=== PATIENT | female | born 1945 | race Caucasian/White ===

== ENCOUNTER → 2023-12-18 | Day surgery (SDC) | payer MEDICARE ==
[2023-12-11 13:26] LABS: BASOPHILS # (AUTO) 0.1 X10'3 (0-0.2); BASOPHILS % (AUTO) 0.5 % (0-1); EOSINOPHILS # (AUTO) 0.1 X10'3 (0-0.9); EOSINOPHILS % (AUTO) 0.6 % (0-6); LYMPHOCYTES # (AUTO) 2.4 X10'3 (1.1-4.8); LYMPHOCYTES % (AUTO) 19.6 % (21-51); MEAN CORPUSCULAR HEMOGLOBIN 30.3 PG (27.0-31.0); MEAN CORPUSCULAR HGB CONC 32.2 g/dL (33.0-36.5); MEAN CORPUSCULAR VOLUME 94.2 FL (78-98); MEAN PLATELET VOLUME 9.1 FL (7.4-10.4); MONOCYTES # (AUTO) 0.7 X10'3 (0-0.9); NEUTROPHILS # (AUTO) 9.1 X10'3 (1.8-7.7); NEUTROPHILS % (AUTO) 73.3 % (42-75); PRE OP HEMOGLOBIN 12.2 g/dL (12.0-16.0); PRE OP PLATELET COUNT 260 X10'3 (140-440); PRE OP WHITE BLOOD COUNT 12.5 10'3 (4.8-10.8); RED BLOOD COUNT 4.04 X10'6 (4.20-5.60); RED CELL DISTRIBUTION WIDTH 12.7 % (11.5-14.5)
[2023-12-11 13:42] LABS: ALBUMIN 3.5 G/DL (3.4-5.0); ALKALINE PHOSPHATASE 43 IU/L (46-116); BLOOD UREA NITROGEN 35 MG/DL (7-18); BUN/CREATININE RATIO 43.8 (10.0-20.0); CALCIUM 9.4 MG/DL (8.5-10.1); CHLORIDE 102 MMOL/L (99-107); PRE OP ALT 18 U/L (30-65); PRE OP ANION GAP 5 (8-16); PRE OP AST 12 U/L (10-37); PRE OP BILIRUB, TOTAL 0.3 MG/DL (0.0-1.0); PRE OP GLUCOSE 89 MG/DL (70-104); PRE OP POTASSIUM 4.1 MMOL/L (3.4-5.1); PRE OP SODIUM 139 MMOL/L (135-145); TOTAL CARBON DIOXIDE 32.3 MMOL/L (24-32); TOTAL PROTEIN 6.9 G/DL (6.4-8.2); eGFR 69 ML/MIN
[~2023-12-18] VITALS: Ht 154.9 cm; Wt 53.0 kg
[~2023-12-18] MED LIST: ACET650T48 PO; AMLO-708 PO; BENA40TA90 PO; CALC250T2 PO; DIPH25CA83 PO; DIVA-74 PO; ESCI20TA39 PO; ESTR1TAB28 PO; FOLI0.8C PO; LIDOcaine 2% (20mg/ml) 5ml vial ONE; OXYC1TAB17 PO; QUET100T34 PO; [UNRECOGNIZED DRUG - CODE] PO; fentaNYL/PF 50MCG/1 ML 2ML syringe ONE; midazolam 1 mg/ML 2ml injection ONE; ringers solution, lacted 1,000 ML IV SCH
[2023-12-18] MEDS: clindamycin 600mg/D5W 50ml 50 ML IV ONE (05:30)
[2023-12-18] MEDS: famotidine 20mg tablet PO ONE (05:30)
[2023-12-18 06:48] VITALS: RESP 15; O2SAT 96
[2023-12-18 07:16] VITALS: BP 142/67; PULSE 52; RESP 16; TEMP 97.5; O2SAT 97
[2023-12-18] MEDS: BUPIVAcaine/PF 2.5mg/ml (0.25%) 10ml vial ONE (09:16)
[2023-12-18] MEDS: LIDOcaine 2% (20mg/ml) 5ml vial ONE (09:16)
[2023-12-18 09:30] VITALS: BP 128/88; PULSE 51; RESP 16; O2SAT 99
[2023-12-18 09:40] VITALS: BP 129/54; PULSE 51; RESP 12; O2SAT 100
[2023-12-18 09:50] VITALS: BP 145/67; PULSE 52; RESP 13; O2SAT 98
[2023-12-18 10:10] VITALS: BP 135/69; PULSE 52; RESP 16; O2SAT 95
== END | disposition home or self-care (01) ==
LOC: PAS 06:12
PROVIDERS: ATTEND Orthopaedic Surgery Hand Surgery
DX: G56.02 Carpal tunnel syndrome, left upper limb (principal); I10 Essential (primary) hypertension; E78.00 Pure hypercholesterolemia, unspecified; I20.9 Angina pectoris, unspecified; F32.A Depression, unspecified; Z86.718 Personal history of other venous thrombosis and embolism; Z79.899 Other long term (current) drug therapy; Z96.651 Presence of right artificial knee joint; Z90.710 Acquired absence of both cervix and uterus; Z88.1 Allergy status to other antibiotic agents; Z88.2 Allergy status to sulfonamides; Z88.8 Allergy status to other drugs, medicaments and biological substances; Z82.49 Family history of ischemic heart disease and other diseases of the circulatory system; Z83.3 Family history of diabetes mellitus
CPT/HCPCS: 36415; 64721; 80053; 82948; 85025; A4215; A6449; J2001; J2250; J3010; J3490; J7030; J7120; Z7506

== ENCOUNTER 2024-08-14 05:58 | Outpatient (CLI) | payer MEDICARE ==
[~2024-08-14 05:58] MED LIST changes: -LIDOcaine 2% (20mg/ml) 5ml vial ONE; -fentaNYL/PF 50MCG/1 ML 2ML syringe ONE; -midazolam 1 mg/ML 2ml injection ONE; -ringers solution, lacted 1,000 ML IV SCH
== END 2024-08-14 23:59 | disposition home or self-care (01) ==
LOC: MRI02 05:58
PROVIDERS: ATTEND Physician Assistant Surgical
DX: S96.812A Strain of other specified muscles and tendons at ankle and foot level, left foot, initial encounter (principal); M25.572 Pain in left ankle and joints of left foot; M76.62 Achilles tendinitis, left leg; M19.072 Primary osteoarthritis, left ankle and foot; X58.XXXA Exposure to other specified factors, initial encounter; Y93.89 Activity, other specified; Y92.89 Other specified places as the place of occurrence of the external cause; Y99.8 Other external cause status
CPT/HCPCS: 73721

== ENCOUNTER 2024-12-30 12:46 | Outpatient (CLI) | payer MEDICARE ==
--- NOTE | 2024-12-30 19:15 | RADIOLOGY REPORT ---
EXAM: MR MRI LOWER EXTREMITY LEFT INDICATION: PAIN IN L FOOT/LAT FOOT [PES PLANUS] (ACQUIRED), LEFT FOOT TECHNIQUE: Multiplanar, multisequence imaging of the left foot without contrast COMPARISON: MR MRI LOWER EXTREMITY LEFT on DOS: 08/14/24 FINDINGS: BONES: No MR evidence of an acute fracture, osseous contusion, or aggressive focal osseous lesion. In complete fat suppression axial T2 fat saturated sequence MUSCLES: Normal signal intensity and morphology. TENDONS: Intact. LIGAMENTS: Intact. JOINT SPACES: No joint effusion. NEUROVASCULAR: Normal. OTHER: Dorsal subcutaneous tissue edema. No drainable fluid collection. IMPRESSION: 1. No MR evidence of osteomyelitis. 2. Dorsal subcutaneous tissue edema. No drainable fluid collection.
--- NOTE | 2024-12-30 19:18 | RADIOLOGY REPORT ---
EXAM: MR MRI LOWER EXTREMITY LEFT INDICATION: EFFUSION L ANKLE, FOOT PAIN, LEFT; RUPTURE OF L POSTERIOR TIBIALIS TIENDON TECHNIQUE: Multiplanar and multisequence MR imaging of the left ankle was performed in the absence of gadolinium contrast. COMPARISON: MR MRI LOWER EXTREMITY LEFT on DOS: 08/14/24 FINDINGS: [MEDIAL ANKLE]: Trace linear signal which may be with trace longitudinal partial tear of the distal p osterior tibialis tendon in the inframalleolar segment. Correlate for superimposed tenosynovitis. Int act deltoid ligament. Intact spring ligament complex. [LOW LATERAL ANKLE]: Thinning of the anterior talofibular ligament. Intact peroneal brevis and longus tendons without tenosynovitis. [HIGH LATERAL ANKLE]: Intact anterior and posterior inferior tibiofibular ligaments. [ANTERIOR ANKLE]: Intact anterior tibialis, extensor digitorum longus, and extensor hallucis longus t endons. [POSTERIOR ANKLE]: Trace tibiotalar joint effusion. Normal sinus Tarsi. Normal plantar fascia. Thicke kit of the Achilles tendon. No retrocalcaneal bursitis. [MIDFOOT]: Normal. [BONES]: No acute fracture, osseous contusion, or aggressive osseous lesion. Vertical orientation of the talus compatible with severe pes planus. [MUSCLES]: Normal. [NEUROVASCULAR]: Normal tarsal tunnel [OTHER]: Surrounding subcutaneous and soft tissue edema of the entirety of the ankle IMPRESSION: 1. No MR evidence of osteomyelitis. 2. No drainable fluid collection significant surrounding subcutaneous tissue edema most conspicuous o f the level of the ankle without significant joint effusion. 3. Trace linear signal which may be with trace longitudinal partial tear of the distal posterior tibi christopher tendon in the inframalleolar segment. Correlate for superimposed tenosynovitis. 4. Thinning of the anterior talofibular ligament. Correlate for age-indeterminate injury. 5. Thickening of the Achilles tendon. Correlate for tendinosis
== END 2024-12-30 23:59 | disposition home or self-care (01) ==
LOC: MRI02 12:46
PROVIDERS: ATTEND Specialist/Technologist Athletic Trainer
DX: S86.112A Strain of other muscle(s) and tendon(s) of posterior muscle group at lower leg level, left leg, initial encounter (principal); M25.472 Effusion, left ankle; M21.42 Flat foot [pes planus] (acquired), left foot; M21.6X2 Other acquired deformities of left foot; M20.42 Other hammer toe(s) (acquired), left foot; M79.671 Pain in right foot; M21.6X1 Other acquired deformities of right foot; M20.41 Other hammer toe(s) (acquired), right foot; X58.XXXA Exposure to other specified factors, initial encounter; Y93.89 Activity, other specified; Y92.89 Other specified places as the place of occurrence of the external cause; Y99.8 Other external cause status; M76.62 Achilles tendinitis, left leg
CPT/HCPCS: 73718; 73721